=== PATIENT | male | born 1985 | race Caucasian/White ===

== ENCOUNTER 2020-02-15 20:14 | Emergency (ER) | payer BC, MEDICAID ==
--- NOTE | 2020-02-15 22:15 | CR ---
Right knee: AP, lateral and sunrise patellar views of the right knee were obtained. Comparison: No prior knee study. Medial and lateral joint compartments are maintained in height. No joint effusion is seen. No acute fracture or other abnormality is appreciated. Impression: 1. Nothing acute is seen on 3 view right knee exam. Diagnostic code #1 This report was dictated in MDT
[2020-02-15] MEDS ORDERED: Lidocaine 1% with EPINEPHrine 1:100,000 20 ML MDV INJECT ONE (22:51)
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
== END 2020-02-16 01:00 | disposition home or self-care (01) ==
LOC: MW.ED 20:14
DX: S83.421A Sprain of lateral collateral ligament of right knee, initial encounter (principal); M25.461 Effusion, right knee; I10 Essential (primary) hypertension; Z79.899 Other long term (current) drug therapy; X58.XXXA Exposure to other specified factors, initial encounter
CPT/HCPCS: 20610; 73562-26-RT; 73562-RT; 87070; 87205; 89050; 89060; 99283; 99283-25

== ENCOUNTER 2020-10-20 00:49 | Emergency (ER) | payer MEDICAID ==
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
--- NOTE | 2020-10-20 02:49 | CR ---
For Patients: As a result of the Century Cures Act, medical imaging exams and procedure reports are released immediately into your electronic medical record. You may view this report before your referring provider. If you have questions, please contact your health care provider. INDICATION: Right knee pain. TECHNIQUE: Three views of the right knee. COMPARISON: 02/15/2020. FINDINGS: No focal soft tissue swelling, joint effusion or fracture. Osteoarthritis at the patellofemoral joint. Medial and lateral compartments negative. No chondrocalcinosis. IMPRESSION: 1. No acute abnormality. 2. Mild patellofemoral joint osteoarthritis. Dictated by Tod Taylor MD @ 10/20/2020 2:48:[address] Tod Taylor @ Oct 20 2020 2:48AM
== END 2020-10-20 02:45 ==
LOC: MW.ED 00:49
DX: S80.211A Abrasion, right knee, initial encounter (principal); Z79.899 Other long term (current) drug therapy; X58.XXXA Exposure to other specified factors, initial encounter
CPT/HCPCS: 73562-26-RT; 73562-RT; 99283

== ENCOUNTER 2022-07-18 18:33 | Emergency (ER) | payer MEDICAID | END 2022-07-18 20:55 | LOC: MW.ED 18:33 | DX: I10 Essential (primary) hypertension (principal); Z79.899 Other long term (current) drug therapy | CPT/HCPCS: 99283 ==